=== PATIENT | female | born 1975 | race Caucasian/White ===

== ENCOUNTER 2017-05-09 09:20 | Emergency (ER) | payer OTHER ==
[2017-05-09 09:29] VITALS: BMI 19.1
--- NOTE | 2017-05-09 09:58 | ED PDOC ---
HPI: Female Pain Time Seen by Provider: 05/09/17 09:48 Chief Complaint (Nursing): Abdominal Pain Chief Complaint (Provider): Frequent urination History Per: Patient History/Exam Limitations: no limitations Onset/Duration Of Symptoms: Days (Yesterday evening) Current Symptoms Are (Timing): Still Present Additional Complaint(s): Pt. with increased freq of urination and urgency to urinate. No dysuria. No back pain, nausea, vomit, diarrhea, weakness. Has had same 2x in last 1.5 months. Cipro helped. Seen by pcp and obgyn for same. No fever or dizziness. Past Medical History Reviewed: Nursing Documentation, Vital Signs Vital Signs: Last Vital Signs Temp 97.8 F 05/09/17 09:28 Pulse 74 05/09/17 09:28 Resp BP 119/74 05/09/17 09:28 Pulse Ox 100 05/09/17 09:28 - Medical History PMH: Anxiety, Asthma, Mitral Valve Prolapse Denies: Chronic Kidney Disease - Surgical History Surgical History: No Surg Hx - Family History Family History: States: Unknown Family Hx - Living Arrangements Living Arrangements: With Family - Social History Current smoker - smoking cessation education provided: No Ex-Smoker (has not smoked in the last 12 months): No Alcohol: None Drugs: Denies - Immunization History Hx Tetanus Toxoid Vaccination: Yes Hx Influenza Vaccination: Yes Hx Pneumococcal Vaccination: No - Home Medications Home Medications: Ambulatory Orders Medication Instructions Recorded Albuterol HFA [Ventolin HFA 90 2 puff IH [id number] PRN #1 bottle 06/19/15 mcg/actuation (8 g)] Azithromycin [Zithromax Z-Michael] 250 mg PO DAILY #4 tab 06/19/15 Nitrofurantoin Macrocrystals 100 mg PO BID #10 cap 05/09/17 [Macrobid] - Allergies Allergies/Adverse Reactions: Allergies Allergy/AdvReac Type Severity Reaction Status Date / Time aspirin AdvReac NAUSEA Verified 05/09/17 09:51 Review of Systems Constitutional: Negative for: Fever, Weakness Cardiovascular: Negative for: Chest Pain Respiratory: Negative for: Cough, Shortness of Breath Gastrointestinal: Positive for: Abdominal Pain (suprapubic). Negative for: Nausea, Vomiting Genitourinary Female: Negative for: Dysuria, Frequency, Hematuria, Rash Musculoskeletal: Negative for: Neck Pain, Shoulder Pain Skin: Negative for: Rash Neurological: Negative for: Weakness Physical Exam - Reviewed Nursing Documentation Reviewed: Yes Vital Signs Reviewed: Yes - Physical Exam Appears: Positive for: Non-toxic, No Acute Distress Head Exam: Positive for: ATRAUMATIC, NORMAL INSPECTION, NORMOCEPHALIC Skin: Positive for: Normal Color, Warm, DRY Cardiovascular/Chest: Positive for: Regular Rate, Rhythm Respiratory: Positive for: CNT, Normal Breath Sounds Gastrointestinal/Abdominal: Positive for: Bowel Sounds, Soft, Tenderness ( suprapubic; no left or right quad tenderness) Back: Positive for: Normal Inspection. Negative for: L CVA Tenderness, R CVA Tenderness Extremity: Positive for: Normal ROM Neurologic/Psych: Positive for: Alert, Oriented - ECG O2 Sat by Pulse Oximetry: 100 Pulse Ox Interpretation: Normal - Progress ED Course And Treament: 1057: Stable. Pt. ua neg, but on augmentin for toothache. Possible partial tx. Will rx macrobid. Fu with urology and pcp. Disposition - Clinical Impression Clinical Impression: UTI (urinary tract infection) - Patient ED Disposition Is Patient to be Admitted: No Counseled Patient/Family Regarding: Studies Performed, Diagnosis, Need For Followup, Rx Given - Disposition Referrals: [facility] [Outside] - 05/10/17 Sruthi Bruce MD [Medical Doctor] - 05/10/17 Disposition: Routine/Home Disposition Time: 11:01 Condition: STABLE Additional Instructions: Return if not better in 3 days. Prescriptions: Nitrofurantoin Macrocrystals [Macrobid] 100 mg PO BID #10 cap Instructions: Urinary Tract Infection in Women (ED) Forms: [email or web address] (Czech)
[2017-05-09 10:26] LABS: RBC URINE 1 /hpf (0-3); URINE BILIRUBIN NEGATIVE (NEGATIVE); URINE BLOOD NEGATIVE (NEGATIVE); URINE COLOR YELLOW (YELLOW); URINE GLUCOSE (UA) NEG (Normal); URINE KETONE NEGATIVE (NEGATIVE); URINE LEUKOCYTE ESTERASE NEG Leu/uL (Negative); URINE PROTEIN NEGATIVE (NEGATIVE); URINE UROBILINOGEN 0.2-1.0 mg/dL (0.2-1.0); WBC URINE 1 /hpf (0-5)
[2017-05-09 11:19] VITALS: BP 118/78; PULSE 78; RESP 18; TEMP 97; O2SAT 98
== END 2017-05-09 11:23 | disposition home or self-care (01) ==
LOC: H.ER 09:20
DX: N39.0 Urinary tract infection, site not specified (principal); F41.9 Anxiety disorder, unspecified; I34.1 Nonrheumatic mitral (valve) prolapse; J45.909 Unspecified asthma, uncomplicated